=== PATIENT | female | born 1945 | race Caucasian/White ===

== ENCOUNTER 2018-08-11 18:46 | Emergency (ER) | payer OTHER ==
[~2018-08-11] VITALS: Ht 157.5 cm; Wt 70.5 kg
[2018-08-11] MEDS ORDERED: FOSI20TA3 PO (19:10)
[2018-08-11] MEDS ORDERED: METO1TAB7 PO (19:10)
[2018-08-11] MEDS ORDERED: PRESCAP PO (19:10)
[2018-08-11 19:40] LABS: BASO # 0.1 10^3/uL (0.0-0.2); BASO % 0.5 % (0.0-1.0); EOS # 0.1 10^3/uL (0.0-0.50); HEMATOCRIT 43.8 % (36.0-47.0); HEMOGLOBIN 14.4 g/dl (12.0-15.5); LYMPH # 2.7 10^3/uL (1.5-4.5); LYMPH % 23.2 % (24.0-44.0); MEAN CORPUSCULAR HEMOGLOBIN 30.3 pg (27.0-33.0); MEAN CORPUSCULAR HGB CONC 32.9 g/dl (32.0-36.5); MEAN CORPUSCULAR VOLUME 92.2 fl (80.0-96.0); MONO # 1.1 10^3/uL (0.0-0.8); MONO % 9.8 % (0.0-5.0); NEUTROPHILS # 7.5 10^3/uL (1.8-7.7); NEUTROPHILS % 65.2 % (36.0-66.0); PLATELET COUNT, AUTOMATED 299 10^3/uL (150-450); RED BLOOD COUNT 4.75 10^6/uL (4.00-5.40); WHITE BLOOD COUNT 11.4 10^3/uL (4.0-10.0)
[2018-08-11 19:49] LABS: INR 1.05; PROTHROMBIN TIME 13.8 SECONDS (12.1-14.4)
[2018-08-11 19:57] LABS: BLOOD UREA NITROGEN 27 MG/DL (7-18); CALCIUM LEVEL 9.2 MG/DL (8.8-10.2); CARBON DIOXIDE LEVEL 27 MEQ/L (21-32); CHLORIDE LEVEL 106 MEQ/L (98-107); CK-MB VALUE MASS < 1.0 NG/ML (<3.6); CPK CREATINE PHOSPHOKINASE 51 U/L (26-192); CREATININE FOR GFR 1.06 MG/DL (0.55-1.30); GLOMERULAR FILTRATION RATE 53.8 (>39); GLUCOSE, FASTING 116 MG/DL (70-100); MB/CK RELATIVE INDEX 1.96 (< OR =4); POTASSIUM SERUM 4.3 MEQ/L (3.5-5.1); SODIUM LEVEL 140 MEQ/L (136-145); TROPONIN I < 0.02 NG/ML (< 0.10)
--- NOTE | 2018-08-11 20:09 | REP ---
Clinical: Acute chest pain . Comparison: None . Findings: Examination is limited by portable technique and poor inspiratory effort. Trace left basilar atelectasis cannot be excluded. The mediastinum and cardiac silhouette are within normal limits for portable technique. No focal consolidation, effusion, or pneumothorax. Skeletal structures are intact. Impression: Limited portable examination. Cannot exclude trace left basilar atelectasis versus chronic change. Electronically Signed by Fernie Horner MD 08/11/2018 08:01 P
[2018-08-11] MEDS ORDERED: PRIL20TA2 PO (20:38)
[2018-08-11] MEDS ORDERED: SUCR1TA PO (20:38)
[2018-08-11] MEDS ORDERED: SUCRALFATE 1 GM TAB PO ONE (20:45)
[2018-08-11 21:15] VITALS: BP 119/59
--- NOTE | 2018-08-12 13:44 | ECGEPIP ---
Stationary ECG Study [facility] - ED Test Date: 2018-08-11 Pat Name: ELI CASTRO Department: Room: - Gender: F Gis Consultant: : [id number] Requested By: Osvaldo Choi Order Number: [id number] Reading MD: Niki Kent Measurements Intervals [place] Rate: 61 P: 22 TX: 164 QRS: 9 QRSD: 90 T: 19 QT: 380 QTc: 385 Interpretive Statements SINUS RHYTHM POSSIBLE RIGHT VENTRICULAR CONDUCTION DELAY NO PRIOR FOR COMPARISON Electronically Signed On 08-12-2018 13:44:31 EST by Niki Kent
== END 2018-08-11 21:34 | disposition home or self-care (01) ==
LOC: M ED 18:46
DX: R07.89 Other chest pain (principal); K22.70 Barrett's esophagus without dysplasia; I10 Essential (primary) hypertension; K21.9 Gastro-esophageal reflux disease without esophagitis; Z88.8 Allergy status to other drugs, medicaments and biological substances; Z88.5 Allergy status to narcotic agent; Z79.899 Other long term (current) drug therapy; Z86.79 Personal history of other diseases of the circulatory system
CPT/HCPCS: 71045; 80048; 82550; 82553; 84484; 85025; 85610; 93005; 93041; 94760; 99285; G0463

== ENCOUNTER 2021-12-03 09:55 | Emergency (ER) | payer MEDICARE, OTHER ==
[~2021-12-03] VITALS: Ht 157.5 cm; Wt 72.1 kg
[~2021-12-03 09:55] MED LIST: FOSI20TA60 PO; METO1TAB7 PO; PRESCAP PO; PRIL20TA2 PO; SUCR1TA PO
[2021-12-03] MEDS ORDERED: LOSA50TA28 PO (10:04)
[2021-12-03 10:24] LABS: BASO % 0.3 % (0.0-1.0); EOS % 0.2 % (0.0-3.0); HEMATOCRIT 43.5 % (36.0-47.0); HEMOGLOBIN 14.2 g/dl (12.0-15.5); LYMPH # 1.7 10^3/uL (1.5-5.0); LYMPH % 11.1 % (24.0-44.0); MEAN CORPUSCULAR HEMOGLOBIN 30.3 pg (27.0-33.0); MEAN CORPUSCULAR HGB CONC 32.6 g/dl (32.0-36.5); MEAN CORPUSCULAR VOLUME 92.8 fl (80.0-96.0); MONO # 1.2 10^3/uL (0.0-0.8); MONO % 7.8 % (2.0-8.0); NEUTROPHILS # 12.6 10^3/uL (1.5-8.5); NEUTROPHILS % 80.3 % (36.0-66.0); PLATELET COUNT, AUTOMATED 328 10^3/uL (150-450); RED BLOOD COUNT 4.69 10^6/uL (4.00-5.40); WHITE BLOOD COUNT 15.7 10^3/uL (4.0-10.0)
[2021-12-03 10:45] LABS: ALBUMIN 3.6 GM/DL (3.2-5.2); ALT/SGPT 34 U/L (12-78); BILIRUBIN,DIRECT 0.2 MG/DL (0.0-0.2); BILIRUBIN,TOTAL 0.7 MG/DL (0.2-1.0); BLOOD UREA NITROGEN 12 MG/DL (7-18); CALCIUM LEVEL 9.6 MG/DL (8.8-10.2); CARBON DIOXIDE LEVEL 28 MEQ/L (21-32); CHLORIDE LEVEL 105 MEQ/L (98-107); CREATININE FOR GFR 0.82 MG/DL (0.55-1.30); GLOMERULAR FILTRATION RATE > 60.0 (>39); GLUCOSE, FASTING 134 MG/DL (70-100); LIPASE 134 U/L (73-393); POTASSIUM SERUM 4.5 MEQ/L (3.5-5.1); SODIUM LEVEL 139 MEQ/L (136-145); TOTAL PROTEIN 7.3 GM/DL (6.4-8.2)
[2021-12-03] MEDS ORDERED: KETOROLAC 30 MG/ML 1ML VIAL IV ONE (11:45)
[2021-12-03] MEDS ORDERED: ISOVUE-370 76% 100ML VIAL As Ordered ONE (11:48)
[2021-12-03] MEDS ORDERED: CIPR750T2 PO (12:40)
[2021-12-03] MEDS ORDERED: METR-265 PO (12:40)
[2021-12-03 12:55] VITALS: BP 136/68
== END 2021-12-03 13:03 | disposition home or self-care (01) ==
LOC: M ED 09:55
DX: K57.32 Diverticulitis of large intestine without perforation or abscess without bleeding (principal); R73.03 Prediabetes; I10 Essential (primary) hypertension; K22.70 Barrett's esophagus without dysplasia; R93.2 Abnormal findings on diagnostic imaging of liver and biliary tract; Z79.899 Other long term (current) drug therapy; Z88.8 Allergy status to other drugs, medicaments and biological substances
CPT/HCPCS: 74177; 80048; 80076; 83690; 85025; 99284; Q9967